=== PATIENT | male | born 1970 | race Caucasian/White ===

== ENCOUNTER 2022-06-26 09:58 | Observation (INO) ==
[2022-06-26 11:09] LABS: Basophils # 0.1 K/mcL (0.0-0.2); Basophils % 0.6 %; Eosinophils # 0.4 K/mcL (0.0-0.6); Eosinophils % 2.6 %; Hematocrit 26.2 % (37.5-50.1); Immature Granulocytes % 1.7 % (0-4); Mean Corpuscular HGB Conc 34.4 g/dL (31.6-35.5); Mean Corpuscular Hemoglobin 30.8 pg (28.0-33.3); Mean Corpuscular Volume 89.7 fL (83.0-100.0); Mean Platelet Volume 9.9 fL (9.4-12.4); Monocytes % 7.6 %; Neutrophils # 8.8 K/mcL (1.6-8.9); Platelet Count 174 K/mcL (140-400); Red Blood Count 2.92 M/mcL (4.19-5.50); Red Cell Distribution Width 13.7 % (11.5-14.5); Segmented Neutrophils % 65.5 %; White Blood Count 13.5 K/mcL (4.3-11.1)
[2022-06-26 11:30] LABS: BUN/Creatinine Ratio 12 (6-26); Blood Urea Nitrogen 10 mg/dL (6-20); Calcium 8.3 mg/dL (8.6-10.3); Carbon Dioxide 26 mEq/L (23-29); Chloride 105 mEq/L (98-107); Glucose 126 mg/dL (70-105); Osmolality,Calculated 283 (280-300); Potassium 4.1 mEq/L (3.5-5.1); Sodium 136 mEq/L (136-145); eGFR For African Americans > 60 (> 60); eGFR For Non-African Americans > 60 (> 60)
[2022-06-26 11:40] LABS: INR 1.2; Prothrombin Time 12.9 Seconds (9.4-12.1)
[2022-06-26] MEDS ORDERED: 0.9 % Sodium Chloride 1,000 ML IVC ONE (11:41)
[2022-06-26 11:43] LABS: Activated Partial Thrombo Time 31.7 Seconds (26.0-36.0)
[2022-06-26 11:56] LABS: Troponin I < 0.03 ng/mL (< 0.04)
[2022-06-26 11:57] LABS: Lipase 13 Units/L (11-82); Magnesium 1.8 mg/dL (1.6-2.6)
[2022-06-26] MEDS ORDERED: Acetaminophen 325 MG TABLET PO PRN (12:09)
[2022-06-26] MEDS ORDERED: Ondansetron 4 MG/2 ML VIAL IVP PRN (12:09)
[2022-06-26] MEDS ORDERED: Dextrose Gel 15 GM/37.5 ML TUBE PO PRN ×2 (12:09)
[2022-06-26] MEDS ORDERED: *HR* Dextrose 50 % in Water (Syg) 50 ML SYRINGE IVP PRN (12:09)
[2022-06-26] MEDS ORDERED: D5% in Water 1,000 ML IVC PRN (12:09)
[2022-06-26] MEDS ORDERED: Naloxone 0.4 MG/ML INJ IVP PRN (12:09)
[2022-06-26] MEDS: Nicotine 21 MG PATCH.TD24 TD SCH (12:30)
[2022-06-26] MEDS: Ringers Solution, Lactated 1,000 ML IVC SCH (12:38)
[2022-06-26] MEDS ORDERED: SODIUM CHLORIDE/NAHCO3/KCL/PEG 4,000 ML SOLN.RECON PO ONE (17:00)
[2022-06-26 17:07] LABS: Basophils # 0.1 K/mcL (0.0-0.2); Basophils % 0.5 %; Eosinophils # 0.4 K/mcL (0.0-0.6); Eosinophils % 3.5 %; Hematocrit 24.1 % (37.5-50.1); Hemoglobin 8.2 g/dL (12.9-16.9); Immature Granulocytes % 1.5 % (0-4); Lymphocytes # 3.1 K/mcL (0.6-4.6); Lymphocytes % 24.9 %; Mean Corpuscular Hemoglobin 30.9 pg (28.0-33.3); Mean Corpuscular Volume 90.9 fL (83.0-100.0); Mean Platelet Volume 10.2 fL (9.4-12.4); Monocytes # 0.8 K/mcL (0.0-1.3); Monocytes % 6.4 %; Neutrophils # 7.9 K/mcL (1.6-8.9); Platelet Count 160 K/mcL (140-400); Red Blood Count 2.65 M/mcL (4.19-5.50); Segmented Neutrophils % 63.2 %; White Blood Count 12.5 K/mcL (4.3-11.1)
[2022-06-26] MEDS: Pantoprazole 40 MG VIAL IVP SCH (17:49)
[2022-06-26] MEDS: Insulin LISPRO 300 UNITS/3 ML VIAL SUBQ SCH (18:02)
[2022-06-26 20:16] LABS: Basophils # 0.1 K/mcL (0.0-0.2); Basophils % 0.6 %; Eosinophils # 0.4 K/mcL (0.0-0.6); Eosinophils % 3.3 %; Hematocrit 22.5 % (37.5-50.1); Hemoglobin 7.7 g/dL (12.9-16.9); Immature Granulocytes % 1.4 % (0-4); Lymphocytes # 3.4 K/mcL (0.6-4.6); Lymphocytes % 29.9 %; Mean Corpuscular HGB Conc 34.2 g/dL (31.6-35.5); Mean Corpuscular Hemoglobin 30.9 pg (28.0-33.3); Mean Corpuscular Volume 90.4 fL (83.0-100.0); Monocytes # 0.8 K/mcL (0.0-1.3); Monocytes % 7.2 %; Neutrophils # 6.4 K/mcL (1.6-8.9); Platelet Count 144 K/mcL (140-400); Red Blood Count 2.49 M/mcL (4.19-5.50); Red Cell Distribution Width 14.1 % (11.5-14.5); Segmented Neutrophils % 57.6 %; White Blood Count 11.2 K/mcL (4.3-11.1)
[2022-06-27] MEDS: Insulin LISPRO 300 UNITS/3 ML VIAL SUBQ SCH ×2 (01:02→05:47)
[2022-06-27 03:22] LABS: Basophils # 0.1 K/mcL (0.0-0.2); Basophils % 0.6 %; Eosinophils # 0.5 K/mcL (0.0-0.6); Eosinophils % 3.6 %; Hematocrit 22.3 % (37.5-50.1); Hemoglobin 7.5 g/dL (12.9-16.9); Immature Granulocytes % 1.3 % (0-4); Lymphocytes # 2.7 K/mcL (0.6-4.6); Mean Corpuscular HGB Conc 33.6 g/dL (31.6-35.5); Mean Corpuscular Hemoglobin 30.4 pg (28.0-33.3); Mean Corpuscular Volume 90.3 fL (83.0-100.0); Mean Platelet Volume 10.6 fL (9.4-12.4); Monocytes # 0.8 K/mcL (0.0-1.3); Monocytes % 6.5 %; Neutrophils # 8.4 K/mcL (1.6-8.9); Nucleated Red Blood Cells 0.2 /100 WBC (0); Platelet Count 167 K/mcL (140-400); Red Blood Count 2.47 M/mcL (4.19-5.50); White Blood Count 12.6 K/mcL (4.3-11.1)
[2022-06-27 03:44] LABS: BUN/Creatinine Ratio 10 (6-26); Blood Urea Nitrogen 9 mg/dL (6-20); Calcium 7.9 mg/dL (8.6-10.3); Carbon Dioxide 26 mEq/L (23-29); Chloride 107 mEq/L (98-107); Glucose 121 mg/dL (70-105); Osmolality,Calculated 286 (280-300); Potassium 3.9 mEq/L (3.5-5.1); Sodium 138 mEq/L (136-145)
[2022-06-27] MEDS: Ringers Solution, Lactated 1,000 ML IVC SCH (05:53)
[2022-06-27] MEDS: Pantoprazole 40 MG VIAL IVP SCH (05:55)
[2022-06-27] MEDS: Nicotine 21 MG PATCH.TD24 TD SCH (07:57)
[2022-06-27] MEDS ORDERED: Loratadine 10 MG TABLET PO SCH (09:00)
[2022-06-27] MEDS ORDERED: Simethicone 40 MG/0.6 ML MLS IR ONE (12:56)
[2022-06-27] MEDS ORDERED: Lidocaine -MPF 2% 5 ML VIAL ONE (13:19)
[2022-06-27] MEDS ORDERED: *HR* Propofol 200 MG/20 ML VIAL IVP ONE (14:05)
[2022-06-27 14:36] VITALS: BP 115/81; PULSE 117; TEMP 98.4; O2SAT 96
[2022-06-27 16:00] LABS: Hematocrit 20.7 % (37.5-50.1); Hemoglobin 6.9 g/dL (12.9-16.9)
== END 2022-06-27 16:46 | disposition left against medical advice (07) ==
LOC: 3ANU 09:58 → EMEROOARM 09:58 → SUATTDRO 16:41 → 3ANU 17:11
PROVIDERS: ADMIT Internal Medicine; ATTEND Family Medicine